=== PATIENT | male | born 1985 | race African-American/Black ===

== ENCOUNTER 2017-05-12 08:39 | Emergency (ER) | payer OTHER ==
[~2017-05-12] VITALS: Ht 167.6 cm; Wt 63.5 kg
[~2017-05-12 08:39] MED LIST: IBUPROFEN 800800 MG PO; NOHOMEMEDICATIONS; NORFLEX100 MG PO
[2017-05-12] MEDS ORDERED: NORCO 5-325 TA1 EACH PO (08:51)
[2017-05-12] MEDS ORDERED: KEFLEX500 MG PO (08:51)
[2017-05-12] MEDS ORDERED: BACTRIM DS TAB1 EACH PO (08:51)
[2017-05-12 09:15] VITALS: BP 118/62
== END 2017-05-12 09:33 | disposition home or self-care (01) ==
LOC: ER 08:39
DX: L02.413 Cutaneous abscess of right upper limb (principal); L02.411 Cutaneous abscess of right axilla; L03.115 Cellulitis of right lower limb; L25.9 Unspecified contact dermatitis, unspecified cause; F10.99 Alcohol use, unspecified with unspecified alcohol-induced disorder